=== PATIENT | male | born 1995 | race American Indian/Alaskan Native ===

== ENCOUNTER 2017-06-15 11:29 | Emergency (ER) | payer MEDICAID ==
--- NOTE | 2017-06-15 11:54 | XRay Report ---
CHEST ONE VIEW INDICATION: Altered mental status. COMPARISON: None similar at this institution. FINDINGS: Portable, single, frontal chest radiograph demonstrates normal cardiomediastinal silhouette. Clear lungs. Unremarkable bones. Extrinsic EKG leads. CONCLUSION: No acute disease in the chest. Thank you for the opportunity to participate in this patient's care.
--- NOTE | 2017-06-15 12:23 | Cat Scan Report ---
CT HEAD WITHOUT CONTRAST INDICATION: Altered mental status. COMPARISON: None similar. FINDINGS: Noncontrast head CT demonstrates normal, symmetric ventricles and sulci without acute or recent infarct, hemorrhage, mass effect or midline shift. No abnormal extra-axial fluid collections. Posterior fossa structures and basilar cisterns appear within normal limits. Symmetric eye globes. Clear paranasal sinuses and mastoid air cells. Intact calvarium. Normal overlying scalp soft tissues. CONCLUSION: No acute intracranial CT abnormality, as described. Thank you for the opportunity to participate in this patient's care.
[2017-06-15 12:27] LABS: Hematocrit 44.4 % (35.5-45.6); Mean Corpuscular HGB Conc 34 % (32-34); Mean Corpuscular Hemoglobin 31 pg (28-32); Mean Corpuscular Volume 93 fl (84-94); Platelet Count 190 K/mm3 (140-440); Red Blood Count 4.78 M/mm3 (3.65-5.03); Red Cell Distribution Width 12.9 % (13.2-15.2); White Blood Count 6.8 K/mm3 (4.5-11.0)
[2017-06-15 12:38] LABS: Urine Drugs of Abuse Note Disclamer
[2017-06-15 12:46] LABS: INR 0.94 (0.87-1.13); Partial Thromboplastin Time 28.4 Sec. (24.2-36.6)
--- NOTE | 2017-06-15 12:50 | Emergency Department Report ---
HPI - General Chief Complaint: Altered Mental Status Time Seen by Provider: 06/15/17 11:35 - HPI HPI: This a 21 year-old male who presents from home with family with a complaint of altered mental status. The patient was last seen normal sometime last night. Just prior to presentation, the patient's father found him sitting down and/or laying down in the hallway. The patient himself did not appear to be able to speak right or form normal words and/or sentences. Despite being 21 years of age, the patient has been known to drink alcohol sometimes and will smoke marijuana, but they otherwise deny any known history of any other illicit drugs. He does not have any past medical history. He does not have a primary care physician. The patient himself is a poor historian secondary to his medical condition. ED Past Medical Hx - Past Medical History Previous Medical History?: No - Surgical History Past Surgical History?: No - Social History Smoking Status: Current Every Day Smoker Substance Use Type: Alcohol, Marijuana - Medications Home Medications: Home Medications Medication Instructions Recorded Confirmed Last Taken Type Nitrofurantoin Monohyd/M-Cryst 100 mg PO BID #14 capsule 06/15/17 Unknown Rx [Macrobid 100 mg Capsule] ED Review of Systems ROS: Stated complaint: AMS Other details as noted in HPI Comment: Unobtainable due to pts medical conditions Physical Exam - Physical Exam Vital Signs: Vital Signs 06/15/17 11:47 Temperature 98.5 F Pulse Rate 67 Respiratory 14 Rate Blood Pressure 111/74 O2 Sat by Pulse 100 Oximetry Physical Exam: GENERAL: The patient is well-developed well-nourished. HENT: Normocephalic. Atraumatic. Patient has moist mucous membranes. EYES: Extraocular motions are intact. Pupils equal reactive to light bilaterally. There is no nystagmus seen but there is some delay with tracking. NECK: Supple. Trachea is midline. CHEST/LUNGS: Clear to auscultation. There is no respiratory distress noted. HEART/CARDIOVASCULAR: Regular. There is no tachycardia. There is no gallop rub or murmur. ABDOMEN: Abdomen is soft, nontender. Patient has normal bowel sounds. There is no abdominal distention. SKIN: Skin is warm and dry. NEURO: The patient is awake but altered. He appears to have some expressive aphasia along with some stuttering speech. He does follow commands. No dysmetria. MUSCULOSKELETAL: There is no tenderness or deformity. There is no limitation range of motion. There is no evidence of acute injury. Muscle strength 5 out of 5 for upper and lower extremity bilaterally. ED Course Vital Signs 06/15/17 11:47 Temperature 98.5 F Pulse Rate 67 Respiratory 14 Rate Blood Pressure 111/74 O2 Sat by Pulse 100 Oximetry - Consultations Consultation #1: I just went back and reevaluated the patient and he now appears to be back at his normal baseline mental status. He is talking on the phone and joking around with family. He says he does not understand why everyone is acting the way they are acting in response to him and it does not appear as if he understands that he was altered for the past hour or so. I question whether this is drug related versus a seizure that was unwitnessed. 06/15/17 12:50 ED Medical Decision Making - Lab Data Result diagrams: 06/15/17 11:55 06/15/17 11:55 - EKG Data -: EKG Interpreted by Me EKG shows normal: sinus rhythm (sinus arrhythmia), axis, intervals, QRS complexes (LVH), ST-T waves (early repolarization) Rate: normal - EKG Data When compared to previous EKG there are: previous EKG unavailable Interpretation: other (sinus arrhythmia, LVH, early repolarization) - Radiology Data Radiology results: report reviewed, image reviewed interpreted by me: Chest x-ray does not show any acute process. There are no pleural effusions, obvious pneumonia and there is no pneumothorax. CT of the head does not show any acute intracranial process including no ischemia, shift, mass, bleeding or skull fracture. - Medical Decision Making This patient has completely improved from presentation. Upon presentation he appears altered with some expressive aphasia and stuttering speech. He will follow some commands but it is obvious that he does not comprehend everything. CT of the head does not show any bleed, shift, mass or any acute process. EKG does not show any signs of ST elevation AL. His labs are mostly unremarkable except for a mild urinary tract infection. Urine drug treated was positive only for marijuana and family libertarian knows of him using marijuana. Blood alcohol level is negative. There was no etiology of the patient's symptoms found in his lab or imaging workup. The patient was reevaluated multiple times for multiple hours and about 45 minutes after presentation he was reevaluated and found to be back to normal, talking on the phone and asking what everyone was fussing about. It appears that he does not remember some of the time prior to presentation and the 45 minutes upon arrival. Since there is no significant positives found on the urine drug screen, my differential diagnosis includes a seizure with a postictal period versus some other synthesized drug versus other. However he was reevaluated multiple times while in the emergency department and has since remained awake and alert and is asking for discharge home. He will be treated on the Macrobid and will be given referrals for primary care and neurology. He will return to the ER with any worsening of symptoms or any acute distress. - Differential Diagnosis seizure, drug abuse, alcohol intoxication Critical Care Time: No Critical care attestation.: If time is entered above; I have spent that time in minutes in the direct care of this critically ill patient, excluding procedure time. ED Disposition Clinical Impression: Hyperkalemia Altered mental status Qualifiers: Altered mental status type: unspecified Qualified Code(s): R41.82 - Altered mental status, unspecified UTI (urinary tract infection) Qualifiers: Urinary tract infection type: acute cystitis Hematuria presence: without hematuria Qualified Code(s): N30.00 - Acute cystitis without hematuria Disposition: TO HOME OR SELFCARE Is pt being admited?: No Condition: Stable Instructions: Urinary Tract Infection in Men (ED), Altered Mental Status (ED) Additional Instructions: Please follow up with a primary care physician in the next few days. I have also given you a referral for a local neurologist, Dr. Sin, follow-up regarding your altered mental status and questionable seizure. Return to the emergency Department with any worsening of your symptoms or any acute distress. Prescriptions: Nitrofurantoin Monohyd/M-Cryst [Macrobid 100 mg Capsule] 100 mg PO BID #14 capsule Referrals: PRIMARY CIRA, [Primary Care Provider] - 3-5 Days JUJU SIN MD [Staff Physician] - 3-5 Days RAIZA POPE MD [Staff Physician] - 3-5 Days Time of Disposition: 14:51
[2017-06-15 12:51] LABS: Alanine Aminotransferase 22 units/L (7-56); Albumin 4.3 g/dL (3.9-5); Albumin/Globulin Ratio 1.5 %; Alkaline Phosphatase 87 units/L (35-129); Anion Gap 17 mmol/L; BUN/Creatinine Ratio 15; Blood Urea Nitrogen 15 mg/dL (9-20); Calcium 9.7 mg/dL (8.4-10.2); Carbon Dioxide 28 mmol/L (22-30); Chloride 101.3 mmol/L (98-107); Creatine Kinase 95 units/L (55-170); Glucose 83 mg/dL (75-100); Potassium 5.3 mmol/L (3.6-5.0); Sodium 141 mmol/L (137-145); Total Protein 7.1 g/dL (6.3-8.2)
[2017-06-15 12:59] LABS: Bacteria,Urine 1+ /HPF (Negative); Bilirubin,Urine NEG (Negative); Blood,Urine NEG (Negative); Ketones,Urine NEG (Negative); Leukocyte Esterase,Urine MOD (Negative); Nitrite,Urine NEG (Negative); Protein,Urine <15 mg/dL mg/dL (Negative); Urobilinogen,Urine < 2.0 mg/dL (<2.0)
[2017-06-15] MEDS ORDERED: MACROBID PO ONE (13:07)
[2017-06-15] MEDS ORDERED: KIONEX PO ONE (13:08)
[2017-06-15 15:10] VITALS: BP 103/68
== END 2017-06-15 15:11 | disposition home or self-care (01) ==
LOC: ED 11:29
DX: E87.5 Hyperkalemia (principal); N30.00 Acute cystitis without hematuria; R41.82 Altered mental status, unspecified; F17.200 Nicotine dependence, unspecified, uncomplicated; F12.10 Cannabis abuse, uncomplicated
CPT/HCPCS: 36415; 70450; 71010; 80053; 80307; 81001; 82140; 82550; 82962; 84484; 85025; 85610; 85730; 93005; 93010; 99285; G0480; 80320

== ENCOUNTER 2019-10-07 11:24 | Emergency (ER) | payer SELFPAY ==
[2019-10-07 12:26] VITALS: BP 130/84
--- NOTE | 2019-10-07 12:29 | Emergency Department Report ---
Chief Complaint: Skin Rash Stated Complaint: CYST ON FACE Time Seen by Provider: 10/07/19 12:23 - HPI History of Present Illness: This is a 23 y.o. M. that presents to the ER with painful pimple to right cheek for 2 weeks. States cleaning face with water with no change in symptoms. Denies facial swelling, drainage, or redness surrounding site. - ROS Review of Systems: Review of Systems: ROS: Stated complaint: painful bump to face Other details as noted in HPI Comment: All other systems reviewed and negative - Exam Vital Signs: Vital Signs 10/07/19 10/07/19 12:22 13:08 Temperature 97.5 F L Pulse Rate 116 H 82 Respiratory 20 18 Rate Blood Pressure 130/84 O2 Sat by Pulse 99 95 Oximetry Physical Exam: - General Limitations: No Limitations General appearance: alert, in no apparent distress - Head Head exam: Present: atraumatic, normocephalic - Respiratory Respiratory exam: Present: normal lung sounds bilaterally. Absent: respiratory distress - Cardiovascular Cardiovascular Exam: Present: regular rate, normal rhythm. Absent: systolic murmur, diastolic murmur, rubs, gallop - GI/Abdominal GI/Abdominal exam: Present: soft, normal bowel sounds - Extremities Exam Extremities exam: Present: normal inspection - Back Exam Back exam: Present: normal inspection - Neurological Exam Neurological exam: Present: alert, oriented X3 - Psychiatric Psychiatric exam: Present: normal affect, normal mood - Skin Skin exam: Present: 3-4 mm papule to left malar region, ttp, no erythema or discharge. Warm, dry, intact, normal color. MSE screening note: Focused history and physical exam performed. Due to findings the following was ordered: ED Medical Decision Making - Medical Decision Making This is a 23-year-old male that presents to the emergency room with a painful bump to left cheek for 2 weeks. VSS. No acute distress. There is a 3 to 4 mm papule to left malar region, ttp, no erythema or discharge which is susceptible of of acne vulgaris. Patient will be treated with topical antibiotics. Referral to PCP for continued care. Patient discharged home stable with strict return instructions. ED Disposition for MSE Clinical Impression: Acne vulgaris Disposition: - TO HOME OR SELFCARE Is pt being admited?: No Condition: Stable Instructions: Acne (ED) Prescriptions: Mupirocin [Bactroban 2%] 1 applic TP TID #1 tube Referrals: [facility] [Outside] - 3-5 Days [facility] [Outside] - 3-5 Days [facility] [Outside] - 3-5 Days Forms: Work/School Release Form(ED) Time of Disposition: 13:03
== END 2019-10-07 13:08 | disposition home or self-care (01) ==
LOC: ED 11:24
DX: L70.0 Acne vulgaris (principal)
CPT/HCPCS: 99282